=== PATIENT | female | born 1990 | race Caucasian/White ===

== ENCOUNTER → 2019-01-22 | Outpatient (CLI) | payer SELFPAY ==
[~2019-01-22] VITALS: Wt 98.0 kg
--- NOTE | 2019-01-22 20:20 | NUR ---
Ambulatory to unit for labor assessment, accompanied by spouse and 2 children. Pt doesn't speak [place], interprets. Pt presenting for backache, nausea, fatique. Pt's and family arrived from [facility] 3 days ago, have not established care, have no medical record. Pt's reports 2 previous children born by C/Section. reports no medical allergies, no complications from surgery, taking occasional benadryl. reports EDC of 02/22/2019. SVE as noted, pt cries and clutches 's hand during exam.
[2019-01-22 20:30] VITALS: BP 112/69; PULSE 97
--- NOTE | 2019-01-22 23:05 | NUR ---
Pt to R side, resting.
[2019-01-22 23:10] VITALS: BP 100/55; PULSE 97
[2019-01-22 23:21] VITALS: BP 112/69; PULSE 100; TEMP 98.3
--- NOTE | 2019-01-23 | NUR ---
pt sleeping. EFM traces maternal heart rate unless held in place.
== END ==
LOC: COL.ER 19:33 → LDRO 19:34 → EDSTATUS 20:30
DX: O99.89 Other specified diseases and conditions complicating pregnancy, childbirth and the puerperium (principal); M54.9 Dorsalgia, unspecified; R11.0 Nausea; Z3A.36 36 weeks gestation of pregnancy

== ENCOUNTER 2019-02-05 15:18 | Outpatient (CLI) | payer SELFPAY ==
[~2019-02-05] VITALS: Ht 160 cm; Wt 100.0 kg
--- NOTE | 2019-02-05 15:30 | NUR ---
Patient ambulatory to [facility]5 with spouse and children, changed into gown, FHR/TOCO monitor placed. Patient states "she has been abraham and crying with pain, [place] and need to have today or in the next few days, so that she is recovered for travel" Plan of care discussed. 1535:[id number]/-3 Informed patient and that I will call Dr. Santos and tell her everything and will let them know what the plan will be.
--- NOTE | 2019-02-05 15:50 | NUR ---
Patient intermittently sitting forward and FHR tracing maternal heartrate. 1624: Subtle varibale deceleration noted with contraction and then returns to baseline. 1700: Patient off monitor and changed into cloths. 1710: Spouse and patient given discharge instructions. "Keep scheduled appointment with this week, drink alot of water and eat- do not recommend fasting, rest, tylenol for pain, benadryl for sleep, and return if contractions are closer or stronger, call with any questions/concerns" Spouse verbalizes understanding and translates to patient. 1712: Ambulatory off unit.
[2019-02-05 16:00] VITALS: BP 110/71; PULSE 109; TEMP 98.3
[2019-02-05] MEDS ORDERED: CONCEPT DHA1 CAP PO (16:07)
[2019-02-05 17:00] VITALS: BP 113/76; PULSE 105
--- NOTE | 2019-02-05 17:00 | NUR ---
Dee RN views FHR strip and agrees that FHR strip in appropriate at this time for patient to get off monitor.
== END 2019-02-05 17:12 | disposition home or self-care (01) ==
LOC: LDRO 15:18 → LDR 15:30 → LDRO 15:30 → LDR 17:12
DX: O62.9 Abnormality of forces of labor, unspecified (principal); Z3A.38 38 weeks gestation of pregnancy
CPT/HCPCS: OP